=== PATIENT | female | born 1985 | race Hispanic/Latino ===

== ENCOUNTER 2024-08-03 17:13 | Emergency (ER) | payer SELFPAY ==
--- NOTE | ~2024-08-03 | CT_ITS ---
Noncontrast CT scan of the lumbar spine CLINICAL HISTORY: Radiculopathy TECHNIQUE: Axial noncontrast imaging of the lumbar spine was performed. Sagittal and coronal reformat kelli images were constructed. Dose reduction technique was used on this scan by utilizing automated ex posure control and iterative reconstruction technique. The dose-length product (DLP) was 296.18 mGy-c m. FINDINGS: There is no fracture or subluxation of the lumbar spine. Vertebral bodies maintain normal h eight and alignment. Intervertebral disc spaces are relatively well preserved throughout. At L1-L2, there is minimal disc bulge and minimal facet arthropathy. No central canal stenosis or osl ral foraminal narrowing clearly evident. At L2-L3, no significant disc bulge present. There is mild facet hypertrophy. No central canal stenos is or definite neural foraminal narrowing. At L3-L4, there is minimal disc bulge and moderate facet arthropathy. No definite canal stenosis. Pro bable mild to moderate bilateral neural foraminal narrowing. At L4-L5, there is left paracentral disc protrusion with mild facet arthropathy. There is probable mo derate central canal stenosis/thecal sac compression. There is preservation of the neural foramina. At L5-S1, there is broad-based disc protrusion resulting in moderate to severe spinal canal stenosis/ thecal sac compression. There is mild bilateral neural foraminal narrowing. Paravertebral soft tissues are unremarkable. Small amount of pelvic ascites noted. Impression: Degenerative spondylosis predominantly at L4-L5 and L5-S1, as detailed above. Reviewed, dictated and finalized at [facility]. Impression: Degenerative spondylosis predominantly at L4-L5 and L5-S1, as detailed above.
--- NOTE | ~2024-08-03 | US_ITS ---
LEFT LOWER EXTREMITY VENOUS ULTRASOUND Ordering provider: Lisa Pham APRN History: . L lower extremity calf pain and swelling . Comparison: None. FINDINGS: --COMMON FEMORAL: Patent and free of thrombus. Normal compressibility, phasic flow and augmentation. --PROXIMAL SUPERFICIAL FEMORAL: Patent and free of thrombus. Normal compressibility, phasic flow and augmentation. --DISTAL SUPERFICIAL FEMORAL: Patent and free of thrombus. Normal compressibility, phasic flow and au gmentation. --POPLITEAL: Patent and free of thrombus. Normal compressibility, phasic flow and augmentation. --POSTERIOR TIBIAL: Patent and free of thrombus. Normal compressibility, phasic flow and augmentation . IMPRESSION: Negative left lower extremity venous US. No deep vein thrombosis. Reviewed, dictated and finalized at location [facility].
[2024-08-03 17:15] VITALS: BP 163/81; PULSE 75; RESP 17; TEMP 36.7; O2SAT 100
--- NOTE | 2024-08-03 19:12 | ED.EXTPRO ---
HPI - Extremity Problem General Chief complaint: Extremity Problem,Nontraumatic <Lisa Pham APRN - Last Filed: 08/03/24 19:16> Stated complaint: LLE pain <Lisa Pham APRN - Last Filed: 08/03/24 19:16> Time Seen by Provider: 08/03/24 19:00 <Lisa Pham APRN - Last Filed: 08/03/24 19:16> Focused HPI: Patient is a 39-year-old female who presents to the ER with complaint of left leg pain. She reports her pain goes across her lower back and radiates down her left upper leg and down to her left calf. Patient reports she fell at work a year ago, but recovered from that injury. Her pain in her left leg started approximately 3 days ago when she does not know if this is related to her fall or not. Patient denies any other medical history pertinent to this ER visit. She denies any recent travel, recent surgeries, or recent fevers. GENERAL: Ill-appearing, well-nourished, and in acute distress d/t pain. HEAD: Normocephalic, atraumatic. CHEST: Clear to auscultation. ?No respiratory distress. HEART: Regular rate and rhythm.? NEURO: ?Alert and oriented x3. Patient screened in triage and initial orders placed.? ?Additional care and disposition to be based upon?diagnostic testing and treatment. <Lisa Pham APRN - Last Filed: 08/03/24 19:16> History of Present Illness HPI Narrative: Agree with the above triage note. Patient states she has had intermittent low back pain that radiates down the posterior left hip and into the left calf for several months. Over the past 3 days the pain has worsened. She did see a chiropractor few months ago and reportedly had x-rays performed which showed some bulging discs. She has not followed up with a medical doctor. She denies saddle anesthesia, bowel or bladder incontinence, urinary retention, use of steroids or immunosuppressants, surgeries or procedures to her back, recent injury or trauma, fever, abdominal pain, dysuria or hematuria. Patient does state that she injured her back about a year ago after mechanical fall. <Ariana Moura PA-C - Last Filed: 08/05/24 02:22> Related Data Allergies/Adverse reactions: Allergies Allergy/AdvReac Type Severity Reaction Status Date / Time No Known Allergies Allergy Verified 08/03/24 17:13 <Lisa Pham APRN - Last Filed: 08/03/24 19:16> Review of Systems Review of Systems: All systems reviewed & are unremarkable except as noted in HPI and below <Ariana Moura PA-C - Last Filed: 08/05/24 02:22> Exam Narrative: GENERAL: Well-appearing, well-nourished, and in no acute distress. HEAD: Normocephalic, atraumatic. EYES: PERRLA and EOMI. ENT: Nares clear, no rhinorrhea or epistaxis. Mucous membranes moist. NECK: Supple. BACK: Diffuse tenderness throughout the lower back including the lumbar spine and paraspinous muscles, tenderness over the left piriformis. Positive left straight leg raise. No overlying skin changes CHEST: Clear to auscultation. No respiratory distress. HEART: Regular rate and rhythm. No murmur heard. Normal peripheral pulses. ABDOMEN: Soft, nontender, nondistended, normal active bowel sounds. EXTREMITIES: Normal range of motion. No edema. Negative Homans to the left lower extremity SKIN: Warm, dry, no rash. NEURO: No focal deficits. Alert and oriented x3. Strength 5/5 in BLE, EHL strength 5/5 bilaterally. DP pulses 2+. Sensation intact throughout. No saddle anesthesia <Ariana Moura PA-C - Last Filed: 08/05/24 02:22> Course Vital Signs Vital signs: Vital Signs Temperature 98.1 F 08/03/24 17:15 Pulse Rate 75 08/03/24 17:15 Respiratory Rate 17 08/03/24 17:15 Blood Pressure 163/81 H 08/03/24 17:15 Pulse Oximetry 100 08/03/24 17:15 Oxygen Delivery Room Air 08/03/24 17:15 Temperature 98.1 F 08/03/24 17:15 Pulse Rate 71 08/04/24 03:00 Respiratory Rate 16 08/04/24 03:00 Blood Pressure 112/72 08/04/24 03:00 Pulse Oximetry 100 08/04/24 03:00 Oxygen Delivery Room Air 08/03/24 17:15 <Lisa Pham APRN - Last Filed: 08/03/24 19:16> Vital Signs Temperature 98.1 F 08/03/24 17:15 Pulse Rate 75 08/03/24 17:15 Respiratory Rate 17 08/03/24 17:15 Blood Pressure 163/81 H 08/03/24 17:15 Pulse Oximetry 100 08/03/24 17:15 Oxygen Delivery Room Air 08/03/24 17:15 Temperature 98.1 F 08/03/24 17:15 Pulse Rate 71 08/04/24 03:00 Respiratory Rate 16 08/04/24 03:00 Blood Pressure 112/72 08/04/24 03:00 Pulse Oximetry 100 08/04/24 03:00 Oxygen Delivery Room Air 08/03/24 17:15 <Ariana Moura PA-C - Last Filed: 08/05/24 02:22> MDM - Extremity (Nontraumatic) MDM Narrative Medical decision making narrative: 39-year-old female presents emergency department for 3 days of worsening lower back pain that radiates down the left lower extremity. Patient had a mechanical fall that trigger back ER ago and has had issues with her pain for the past several months. Vital signs with elevated blood pressure, otherwise unremarkable. Patient is afebrile and nontoxic appearing. Exam is significant for diffuse tenderness along the lower back, paraspinous muscles, left piriformis, left positive straight leg raise. Strength is 5/5 to the lower extremities and sensation intact throughout. No saddle anesthesia. Venous duplex obtained in triage shows no evidence of DVT. UA obtained in triage shows 21-50 wbc's and 3+ leuk esterase with 4+ bacteria, few squamous cells. Urine culture pending. Given history of trauma prior to pain although this was 1 year ago, CT lumbar spine shows a left paracentral disc protrusion at L4-L5 measuring approximately 6 cm likely impinging on the left traversing L5 nerve root. At L5-S1 there is a posterior disc osteophyte complex more asymmetric to the left measuring 6 mm, this also affects the left lateral recess potentially impinging the left traversing S1 nerve root. Patient received IM Toradol, prednisone, Flexeril and lidocaine patch to the ED with improvement. She is ambulatory and without signs or symptoms of cauda equina or significant cord compression. Symptoms consistent with lumbar radiculopathy and consistent with CT findings noted above. The patient will be sent home with prednisone, Flexeril, lidocaine patch, naproxen and given follow-up for neurosurgery and PCP. In addition will start her on cefdinir for UTI pending urine culture results. Discussed strict ED return precautions. She and her daughter at bedside are agreeable with the plan verbalized understanding. Discharged in stable condition. <Ariana Moura PA-C - Last Filed: 08/05/24 02:22> Lab Data Labs: Lab Results 08/03/24 Range/Units 23:33 Urine Color Yellow (Yellow) Urine Appearance Cloudy H (Clear) Urine pH 5.5 (5.0-9.0) Ur Specific [place] 1.010 (1.001-1.035) Urine Protein Negative (Negative) mg/dL Urine Glucose (UA) Negative (Negative) mg/dL Urine Ketones Negative (Negative) mg/dL Ur Blood (Man) 1+ H (Negative) Urine Nitrate Negative (Negative) Urine Bilirubin Negative (Negative) Urine Urobilinogen 0.2 (<2.0) mg/dL Leukocyte Esterase Rfl 3+ H (Negative) JEMAL/UL Urine RBC 3-5 H (0-2) /hpf Urine WBC 21-50 H (0-3) /hpf Ur Squamous Epith Cells Few (Few) /hpf Urine Bacteria 4+ H /hpf Urine Casts 0-2 Urine Test Negative <Lisa Pham, LUCIANO - Last Filed: 08/03/24 19:16> Lab Results 08/03/24 Range/Units 23:33 Urine Color Yellow (Yellow) Urine Appearance Cloudy H (Clear) Urine pH 5.5 (5.0-9.0) Ur Specific [place] 1.010 (1.001-1.035) Urine Protein Negative (Negative) mg/dL Urine Glucose (UA) Negative (Negative) mg/dL Urine Ketones Negative (Negative) mg/dL Ur Blood (Man) 1+ H (Negative) Urine Nitrate Negative (Negative) Urine Bilirubin Negative (Negative) Urine Urobilinogen 0.2 (<2.0) mg/dL Leukocyte Esterase Rfl 3+ H (Negative) JEMAL/UL Urine RBC 3-5 H (0-2) /hpf Urine WBC 21-50 H (0-3) /hpf Ur Squamous Epith Cells Few (Few) /hpf Urine Bacteria 4+ H /hpf Urine Casts 0-2 Urine Test Negative <Ariana Moura PA-C - Last Filed: 08/05/24 02:22> Discharge Plan Discharge Clinical Impression: Acute lumbar radiculopathy, Abnormal urinalysis <Lisa Pham APRN - Last Filed: 08/03/24 19:16> Patient Disposition: Home <Lisa Pham APRN - Last Filed: 08/03/24 19:16> Condition: Stable <Lisa Pham APRN - Last Filed: 08/03/24 19:16> Instructions: Antibiotic Form, Urinary Tract Infection in Women (DC), Back Pain (ED), Lower Back Exercises (ED) <Lisa Pham APRN - Last Filed: 08/03/24 19:16> Patient Language: Turkmen <Lisa Pham APRN - Last Filed: 08/03/24 19:16> Prescriptions: New prednisone 50 mg tablet 50 mg PO DAILY Qty: 5 0RF cyclobenzaprine 10 mg tablet 10 mg PO TID PRN (Reason: muscle spasm) Qty: 14 0RF lidocaine 5 % adhesive patch,medicated 1 patch topical DAILY Qty: 15 0RF Rx Instructions: leave on most painful area for up to 12 hrs. do not use more than 1 patch in a 24-hour period. cefdinir 300 mg capsule 300 mg PO Q12H Qty: 14 0RF naproxen 500 mg tablet 500 mg PO BID PRN (Reason: pain) Qty: 20 0RF <Lisa Pham APRN - Last Filed: 08/03/24 19:16> Follow-up/Referrals: PHYSICIAN,WELDING MACHINE OPERATOR [employer] [Primary Care Provider] - Mauro Choi MD [Physician] - Jannette Martins MD [Physician] - <Lisa Pham APRN - Last Filed: 08/03/24 19:16>
[2024-08-03] MEDS: KETOROLAC (*BKC) 60 MG/2 ML VIAL IM (23:21)
[2024-08-03] MEDS: predniSONE 20 MG TABLET 40 MG PO (23:21)
[2024-08-03 23:37] VITALS: BP 101/76; PULSE 66; RESP 15; O2SAT 100
[2024-08-03 23:48] LABS: Add Urine Microscopic? YES; Appearance Urine Cloudy (Clear); Bacteria Urine 4+ /hpf; Bilirubin Urine Negative (Negative); Blood Urine 1+ (Negative); Color Urine Yellow (Yellow); Glucose Urine UA Negative (Negative); Ketones Urine Negative (Negative); Leukocyte Esterase Ur 3+ LEU/UL (Negative); Nitrate Urine Negative (Negative); Non Pathogenic Casts 0-2; Protein Urine Negative (Negative); Squamous Epithelial Cell Urine Few /hpf (Few); Urobilinogen Urine 0.2 mg/dL (<2.0); WBC Urine 21-50 /hpf (0-3); pH Urine 5.5 (5.0-9.0)
[2024-08-04 00:16] LABS: Pregnancy On Board Control Positive; Urine Pregnancy Test Negative
[2024-08-04] MEDS: LIDOCAINE 5% PATCH 1 PATCH TRANSDERM (00:16)
[2024-08-04] MEDS: CYCLOBENZAPRINE HCL 10 MG TABLET PO (00:16)
[2024-08-04 03:00] VITALS: BP 112/72; PULSE 71; RESP 16; O2SAT 100
== END 2024-08-04 03:00 | disposition home or self-care (01) ==
PROVIDERS: Registered Nurse; Emergency Provider Physician Assistant
DX: M54.16 Radiculopathy, lumbar region (principal); R82.998 Other abnormal findings in urine
CPT/HCPCS: 72131; 81001; 81025; 87086; 87186; 93971; 96372; 99284; A9270; J1885; J7512